=== PATIENT | female | born 1980 | race Caucasian/White ===

== ENCOUNTER 2019-11-30 15:39 | Emergency (ER) | payer OTHER ==
[2019-11-30 15:43] VITALS: TEMP 98.4; BMI 26.9
[2019-11-30] MEDS ORDERED: FAMOTIDINE 20 MG/50 ML IVPB 20 MG/50 ML MG IVPB ONE ×2 (15:56→16:01)
[2019-11-30] MEDS ORDERED: SODIUM CHLORIDE 0.9% 1000 ML INFUS.BAG IV ONE (15:56)
[2019-11-30] MEDS ORDERED: methylPREDNISolone NA SUCC 125 MG/2 ML VIAL IVPB ONE (15:56)
[2019-11-30] MEDS ORDERED: methylPREDNISolone NA SUCC 125 MG/2 ML VIAL ONE ×2 (15:57→15:59)
[2019-11-30 17:21] VITALS: BP 126/77; PULSE 70
--- NOTE | 2019-11-30 17:24 | PDOC ---
History of Present Illness - General Chief Complaint: Allergic Reaction Stated Complaint: ALLERGIC REACTION Time Seen by Provider: 11/30/19 15:59 - History of Present Illness Initial Comments: Pt is a 39yo Slovenian speaking F with no significant PMH who presents with facial swelling. Pt states that swelling began around 3:30pm today. Associated with itchiness of her head, abdominal pain, nausea, and slight vomiting. Pt also rep orts that her voice sounds hoarse and feels SOB. Pt only reports hx of allergy to pollen. States that she ate pork and adobo at 3pm, Flanax @ 1pm, shrimp @ 12pm. States that she has taken these items in the past without issue. PCP: denies PMH: none PSH: C section Meds: denies Allergies: NKDA Social: social ETOH, denies tobacco, etoh use General Farmer [id number] Review of Systems CONSTITUTIONAL:denies fever, chills, diaphoresis, malaise, loss of appetite HEENT:reports hoarse voice, reports facial swelling; denies rhinorrhea, nasal congestion, sore throat, throat swelling, difficulty swallowing CARDIOVASCULAR:denies chest pain, syncope, palpitations, irregular heart rate, lightheadedness, peripheral edema RESPIRATORY:reports SOB; denies cough, wheezing, hemoptysis GASTROINTESTINAL: denies abdominal pain, abdominal distension, nausea, vomiting, diarrhea, constipation, melena, hematochezia GENITOURINARY:denies dysuria, frequency, urgency, hesitancy, hematuria, flank pain, genital pain MUSCULOSKELETAL:denies myalgia, arthralgia HEMATOLOGIC/IMMUNOLOGIC:denies easy bleeding, easy bruising ENDOCRINE: denies unexplained weight gain, unexplained weight loss NEUROLOGIC:reports dizziness, denies headache, loss of consciousness, focal weakness or paresthesias, seizure, mental status changes, bladder or bowel incontinence SKIN:reports itching @ head Physical Exam General: awake, alert, fully oriented, in no acute distress, well developed, well nourished Head: normocephalic, atraumatic Eyes: PERRL, EOMI, anicteric sclera, conjunctiva clear ENT: Auricles normal inspection, hearing grossly normal, TMs clear bilaterally, nares patent, oropharynx clear without exudates, no nasal congestion, moist mucous membranes; no uvular edema, no tongue swelling Neck: supple, normal ROM, no stridor Lung: equal breath sounds b/l, CTA b/l, no crackles, wheezes; no distress, speaks full sentences Heart: RRR, normal S1, S2, no murmurs appreciated Abdomen: soft, non tender, normoactive bowel sounds, no guarding, rebound, masses Extremities: no edema, no erythema or tenderness, DP/PT pulses 2+ and symmetric Neuro: CN2-12 grossly intact, moves all extremities, normal speech, normal gait, sensation intact Skin: warm, dry, no rashes or lesions noted MDM Pt is a 39yo F with no significant PMH who presents with facial swelling. Vitals: normotensive, saturating well on room air. DDx including but not limited to: allergic reaction, angioedema [place]: benadryl, pepcid, solumedrol Improved with breathing and swelling with medications Re-assessment: Patient stable for discharge. Given follow up instructions and strict return precautions. Patient expressed understanding and agreed to plan Disposition: Discharge 12/01/19 01:59 Past History - Medical History Allergies/Adverse Reactions: Allergies Allergy/AdvReac Type Severity Reaction Status Date / Time No Known Allergies Allergy Verified 11/30/19 15:40 Home Medications: Ambulatory Orders Epinephrine [Epipen] 0.3 mg IJ PRN #1 auto.injct 11/30/19 Epinephrine [Epipen] 0.3 mg IJ PRN #1 auto.injct 11/30/19 Prednisone [Prednisone 50 MG TABLETS] 50 mg PO DAILY #3 tablet 11/30/19 Asthma: Yes (NO RECENT ATTACKS) Cancer: No Cardiac Disorders: No COPD: No Diabetes: No HTN: No Seizures: No Thyroid Disease: No - Reproductive History Is Patient Now?: No - Psycho-Social/Smoking History Smoking History: Never smoked Have you smoked in the past 12 months: No - Substance Abuse Hx (Audit-C & DAST Scrn) How often the patient has a drink containing alcohol: Never Score: In Men: 4 or > Positive; In Women: 3 or > Positive: 0 Screen Result (Pos requires Nsg. Audit-10AR): Negative *Physical Exam - Vital Signs Last Vital Signs Temp Pulse Resp BP Pulse Ox 98.4 F 77 18 165/87 100 11/30/19 15:41 11/30/19 15:41 11/30/19 15:41 11/30/19 15:41 11/30/19 15:41 ED Treatment Course - Medications Given in the ED: ED Medications Discontinued Medications Generic Name Dose Route Start Last Admin Trade Name Ayanna PRN Reason Stop Dose Admin Diphenhydramine HCl 50 mg 11/30/19 15:56 11/30/19 16:09 Benadryl Injection - IVPB 11/30/19 15:57 50 mg ONCE ONE Administration Famotidine/Sodium Chloride 20 mg in 50 mls @ 100 mls/hr 11/30/19 15:56 11/30/19 16:09 Pepcid 20 Mg Premixed Ivpb - IVPB 11/30/19 16:25 100 mls/hr ONCE ONE Administration Methylprednisolone Sodium Succinate 125 mg 11/30/19 15:56 11/30/19 16:09 Solu-Medrol - IVPB 11/30/19 15:57 125 mg ONCE ONE Administration Sodium Chloride 500 ml 11/30/19 15:56 11/30/19 16:19 Normal Saline - IV 11/30/19 15:57 500 ml ONCE ONE Administration Discharge - Discharge Information Problems reviewed: Yes Clinical Impression/Diagnosis: Allergic reaction Qualifiers: Encounter type: initial encounter Qualified Code(s): T78.40XA - Allergy, unspecified, initial encounter Condition: Stable Disposition: HOME - Additional Discharge Information Prescriptions: Epinephrine [Epipen] 0.3 mg IJ PRN #1 auto.injct Epinephrine [Epipen] 0.3 mg IJ PRN #1 auto.injct Prednisone [Prednisone 50 MG TABLETS] 50 mg PO DAILY #3 tablet - Follow up/Referral Referrals: Lauri Arcos MD [Primary Care Provider] - [facility] [place] [facility] [place] [Provider Group] Zander Trujillo [Staff Physician] - - Patient Discharge Instructions Patient Printed Discharge Instructions: DI for General Allergic Reactions, DI for Adverse Drug Reaction -- Allergic Additional Instructions: You came into the ER allergic reaction. In the ED, you were evaluated with physical exam. You do not appear to be an acute need for immediate hospitalization. You should avoid taking Flanax or any other medication that contains naproxen or NSAIDs (ibuprofen, motrin, aleve, flanax, etc.). You should avoid eating pork or shrimp. You were advised to follow up with your primary care doctor within 1 week. You were advised to follow up with an range conservationist, Dr. Trujillo. Call TOMORROW to schedule an appointment. You were given a prescription for an Epi-Pen you should ONLY use this medication when you feel your throat or tongue is swelling or if you have difficulty breathing. You were given a prescription for prednisone. Take this once a day for 3 days. You may take over the counter benadryl every 4 to 6 hours as needed. Come back to the ER immediately with any new or worsening concerns, such as shortness of breath, throat tightening, lightheadedness, chest pain, or if you need to use the Epi-Pen Thank you for coming to the [facility] ER. We hope you feel better soon! Lleg a la samreen de emergencias con marsha reaccin alrgica. En el servicio de urgencias, lo evaluaron con un examen fsico. No parece tener marsha necesidad aguda de hospitalizacin inmediata. Debe evitar marcia Flanax o cualquier otro medicamento que contenga naproxeno o KRUPA (ibuprofeno, motrin, aleve, flanax, etc.). Debe evitar comer carne de cerdo o camarones. Se le recomend hacer un seguimiento con grier mdico de atencin primaria en el plazo de 1 semana. Se le recomend hacer un seguimiento con un alerglogo, el Dr. Trujillo. Llame MAANA para programar amrsha gaby. Se le recet un Epi-Pen; debe usar renetta medicamento NICAMENTE cuando sienta que la garganta o la lengua se hinchan o si tiene dificultad para respirar. Le recetaron prednisona. [facility] esto marsha vez al da harry 3 mireles. Puede marcia benadryl de venta aquilino cada 4 a 6 horas, segn sea necesario. Regrese a la samreen de emergencias de inmediato con cualquier inquietud nueva o que empeore, jacqui dificultad para respirar, opresin de garganta, aturdimiento, dolor en el pecho o si necesita usar el Epi-Pen Chichi por venir a la samreen de emergencias de [place]. Esperamos que se sienta mejor pronto! Print Language: BULGARIAN - Post Discharge Activity
--- NOTE | 2019-11-30 17:26 | PDOC ---
Documentation entered by Valentin Bloom SCRIBE, acting as scribe for Junito Cazares MD. Junito Cazares MD: This documentation has been prepared by the nachoibeWolf Alexis, SCRIBE, under my direction and personally reviewed by me in its entirety. I confirm that the documentation accurately reflects all work, treatment, procedures, and medical decision making performed by me. Attending Attestation - Resident Resident Name: CaesarJudith - ED Attending Attestation I have performed the following: I have examined & evaluated the patient, The case was reviewed & discussed with the resident, I agree w/resident's findings & plan, Exceptions are as noted - HPI HPI: 11/30/19 16:38 The patient is a 39 year old female with no significant past medical history or allergic reaction history who presents to the emergency department for evaluation of sensation of throat closing and rash to chest and back that began after eating shrimp 2.5 hours ago and naproxen one hour ago. Symptoms are mild to moderate, persistent and constant. No exacerbating or alleviating factors. The patient denies chest/abdominal/back pain, cough, and shortness of breath. Denies fever, chills, nausea, vomiting, and/or any GI symptoms. Denies any symptoms. Denies any other symptoms. Allergies: NKA PCP: Dr. Arcos - Physicial Exam PE: 11/30/19 16:38 Vitals: Triage Vital signs reviewed General Appearance: no acute distress, well nourished well developed, Head: Atraumatic, normocephalic; Nose: Nares patent bilaterally;no nasal congestion Throat: Posterior oropharynx without erythema, mucous membranes moist, no stridor Neck: Supple;No Nuchal rigidity Chest Wall: Nontender Cardiac: Regular rate and rhythm, no murmurs, no rubs, no gallops, Lungs: Clear to auscultation bilateral, good air movement bilaterally, Abdomen: Soft, nondistended, normal bowel sounds, nontender to palpation Rectal: Exam deferred Extremities: Full range of motion to all extremities, no cyanosis, clubbing, or edema Skin: +rash to skin and chest Warm and dry, no lesions, no petechiae Psych: normal mood, normal affect - Medical Decision Making 11/30/19 17:27 39 y/o mild allergic reaction, no history of similar, Inciting exposure was either shrimp pork or nsaids. Received Solumedrol benadryl and pepcid in the ED. Looks much better rash improving 12/09/19 13:28 Reevaluation patient observed for 3 hours. Symptoms completely resolved will discharge home with EpiPen Patient provided with allergy follow-up Findings, need for follow-up and strict return instructions discussed with patient. Discharge - Discharge Information Problems reviewed: Yes Clinical Impression/Diagnosis: Allergic reaction Qualifiers: Encounter type: initial encounter Qualified Code(s): T78.40XA - Allergy, unspecified, initial encounter Condition: Stable Disposition: HOME - Additional Discharge Information Prescriptions: Epinephrine [Epipen] 0.3 mg IJ PRN #1 auto.injct Epinephrine [Epipen] 0.3 mg IJ PRN #1 auto.injct Prednisone [Prednisone 50 MG TABLETS] 50 mg PO DAILY #3 tablet - Follow up/Referral Referrals: [facility] [place] [facility] at [place] [Provider Group] Lauri Arcos MD [Primary Care Provider] - Zander Trujillo [Staff Physician] - - Patient Discharge Instructions Patient Printed Discharge Instructions: DI for General Allergic Reactions, DI for Adverse Drug Reaction -- Allergic Additional Instructions: You came into the ER allergic reaction. In the ED, you were evaluated with physical exam. You do not appear to be an acute need for immediate hospitalization. You should avoid taking Flanax or any other medication that contains naproxen or NSAIDs (ibuprofen, motrin, aleve, flanax, etc.). You should avoid eating pork or shrimp. You were advised to follow up with your primary care doctor within 1 week. You were advised to follow up with an asset specialist, Dr. Trujillo. Call TOMORROW to schedule an appointment. You were given a prescription for an Epi-Pen you should ONLY use this medication when you feel your throat or tongue is swelling or if you have difficulty breathing. You were given a prescription for prednisone. Take this once a day for 3 days. You may take over the counter benadryl every 4 to 6 hours as needed. Come back to the ER immediately with any new or worsening concerns, such as shortness of breath, throat tightening, lightheadedness, chest pain, or if you need to use the Epi-Pen Thank you for coming to the [facility] ER. We hope you feel better soon! Lleg a la samreen de emergencias con marsha reaccin alrgica. En el servicio de urgencias, lo evaluaron con un examen fsico. No parece tener marsha necesidad aguda de hospitalizacin inmediata. Debe evitar marcia Flanax o cualquier otro medicamento que contenga naproxeno o KRUPA (ibuprofeno, motrin, aleve, flanax, etc.). Debe evitar comer carne de cerdo o camarones. Se le recomend hacer un seguimiento con grier mdico de atencin primaria en el plazo de 1 semana. Se le recomend hacer un seguimiento con un alerglogo, el Dr. Trujillo. Llame MAANA para programar marsha gaby. Se le recet un Epi-Pen; debe usar renetta medicamento NICAMENTE cuando sienta que la garganta o la lengua se hinchan o si tiene dificultad para respirar. Le recetaron prednisona. [place] esto marsha vez al da harry 3 mireles. Puede marcia benadryl de venta aquilino cada 4 a 6 horas, segn sea necesario. Regrese a la samreen de emergencias de inmediato con cualquier inquietud nueva o que empeore, jacqui dificultad para respirar, opresin de garganta, aturdimiento, dolor en el pecho o si necesita usar el Epi-Pen Chichi por venir a la samreen de emergencias de [place]. Esperamos que se sienta mejor pronto! Print Language: TURKISH - Post Discharge Activity
== END 2019-11-30 18:37 | disposition home or self-care (01) ==
LOC: JER 15:39
PROC: 3E033GC Introduction of Other Therapeutic Substance into Peripheral Vein, Percutaneous Approach (ICD-10-PCS; principal; 2019-11-30)
DX: T78.40XA Allergy, unspecified, initial encounter (principal)
CPT/HCPCS: 99284-25

== ENCOUNTER 2020-09-05 22:19 | Emergency (ER) | payer OTHER ==
[2020-09-05 22:24] VITALS: BP 126/54; PULSE 62; TEMP 98.6; BMI 26.6
[2020-09-05 23:34] LABS: HCG,QUALITATIVE URINE Positive
[2020-09-05 23:36] LABS: EPI CELLS >36 /uL (0-25.1); HYALINE CASTS 3 /uL (0-3.1); PH,URINE 5.5 (5.0-8.0); URINE APPEARANCE CLOUDY; URINE BACTERIA 337 /uL (0-1359); URINE BILIRUBIN NEGATIVE (NEGATIVE); URINE COLOR YELLOW; URINE GLUCOSE (UA) NEGATIVE (NEGATIVE); URINE KETONE NEGATIVE (NEGATIVE); URINE LEUK ESTERASE TRACE (NEGATIVE); URINE NITRITE NEGATIVE (NEGATIVE); URINE PROTEIN NEGATIVE (NEGATIVE); URINE RBC 420 /uL (0-23.9); URINE UROBILINOGEN 0.2 mg/dL (0.2-1.0); URINE WBC 8 /uL (0-25.8)
== END 2020-09-06 02:56 | disposition home or self-care (01) ==
LOC: JER 22:19
DX: O26.851 Spotting complicating pregnancy, first trimester (principal); Z3A.01 Less than 8 weeks gestation of pregnancy
CPT/HCPCS: 36415; 76817-TC; 81003; 84702; 84703; 86850; 86900; 86901; 99284-25

== ENCOUNTER 2021-09-01 21:56 | Emergency (ER) | payer OTHER ==
[2021-09-01 22:15] VITALS: BP 165/90; PULSE 68; TEMP 98.4; BMI 26.6
[2021-09-02] MEDS ORDERED: KETOROLAC TROMETHAMINE 15 MG/ML VIAL IVPUSH ONE ×2 (01:09→04:02)
[2021-09-02] MEDS ORDERED: ACETAMINOPHEN 500 MG TABLET (FP) PO ONE (01:10)
[2021-09-02] MEDS ORDERED: ACETAMINOPHEN 500 MG TABLET (FP) ONE (02:28)
[2021-09-02 03:35] LABS: BASO % 0.2 % (0-2.0); EOS % 2.7 % (0-4.5); HEMATOCRIT 37.5 % (32.4-45.2); HEMOGLOBIN 12.6 GM/dL (10.7-15.3); LYMPH % 18.4 % (8-40); MCH 29.2 pg (25.7-33.7); MCHC 33.7 g/dl (32.0-36.0); MEAN CELL VOLUME 86.9 fl (80-96); MEAN PLT VOLUME 8.7 fl (7.5-11.1); MONO % 8.5 % (3.8-10.2); NEUT % 70.2 % (42.8-82.8); PLATELET COUNT 204 10^3/uL (134-434); RBC 4.32 M/mm3 (3.60-5.2); RDW 13.7 % (11.6-15.6); WHITE BLOOD COUNT 9.4 K/mm3 (4.0-10.0)
[2021-09-02 03:44] LABS: PH,URINE 5.5 (5.0-8.0); URINE APPEARANCE CLEAR; URINE BILIRUBIN NEGATIVE (NEGATIVE); URINE COLOR YELLOW; URINE GLUCOSE (UA) NEGATIVE (NEGATIVE); URINE KETONE NEGATIVE (NEGATIVE); URINE LEUK ESTERASE NEGATIVE (NEGATIVE); URINE NITRITE NEGATIVE (NEGATIVE); URINE PROTEIN NEGATIVE (NEGATIVE); URINE UROBILINOGEN 0.2 mg/dL (0.2-1.0)
[2021-09-02 03:55] LABS: CALCIUM 8.8 mg/dL (8.5-10.1)
[2021-09-02 03:56] LABS: ALBUMIN 3.8 g/dl (3.4-5.0); BLOOD UREA NITROGEN 12.5 mg/dL (7-18)
[2021-09-02 03:59] LABS: CREATININE 0.6 mg/dL (0.55-1.3)
[2021-09-02 04:01] LABS: BILIRUBIN,TOTAL 0.6 mg/dL (0.2-1); TOT PROT 7.5 g/dl (6.4-8.2)
[2021-09-02 04:09] LABS: ERYTHROCYTE SEDIMENTATION RATE 3 mm/hr (0-20)
[2021-09-02] MEDS ORDERED: KETOROLAC TROMETHAMINE 15 MG/ML VIAL ONE (05:07)
== END 2021-09-02 05:44 | disposition home or self-care (01) ==
LOC: JER 21:56
PROC: 3E0233Z Introduction of Anti-inflammatory into Muscle, Percutaneous Approach (ICD-10-PCS; principal; 2021-09-01)
DX: M25.531 Pain in right wrist (principal)
CPT/HCPCS: 36415; 73030-TC-RT-FY; 73110-TC-RT-FY; 73130-TC-RT-FY; 80053; 81003; 84703; 85025; 85651; 86140; 86618; 87491; 87591; 99284-25

== ENCOUNTER 2022-07-10 13:50 | Inpatient (IN) | payer OTHER ==
[2022-07-10] MEDS ORDERED: ACETAMINOPHEN 325 MG TABLET (FP) PO PRN (14:55)
[2022-07-10] MEDS ORDERED: BENZOCAINE 28 GM HEMORRHOIDAL OINTMENT TP PRN (14:55)
[2022-07-10] MEDS ORDERED: oxyCODONE HCL 5 MG TABLET PO PRN (14:55)
[2022-07-10] MEDS ORDERED: WITCH HAZEL 50% (TUCKS) 40 PAD/JAR PAD TP PRN (14:55)
[2022-07-10] MEDS ORDERED: METHYLERGONOVINE MALEATE 0.2 MG/1 ML AMP IM ONE (14:55)
[2022-07-10] MEDS ORDERED: BENZOCAINE 20% 57 GM BOTTLE TP PRN (14:55)
[2022-07-10] MEDS ORDERED: BISACODYL 10 MG SUPP.RECT RC PRN (14:55)
[2022-07-10] MEDS ORDERED: METHYLERGONOVINE MALEATE 0.2 MG/1 ML AMP IM PRN (14:55)
[2022-07-10] MEDS ORDERED: OXYTOCIN 20 UNITS in 0.9% NS 20 UNIT/1,000 ML INFUS.BAG IV SCH (15:00)
[2022-07-10 15:33] VITALS: BMI 29.2
[2022-07-10] MEDS: IBUPROFEN 600 MG TABLET (FP) PO PRN ×2 (16:00→21:25)
[2022-07-10 16:03] LABS: BASO % 0.2 % (0-2.0); EOS % 0.2 % (0-4.5); HEMATOCRIT 38.4 % (32.4-45.2); HEMOGLOBIN 13.4 GM/dL (10.7-15.3); LYMPH % 9.1 % (8-40); MCH 32.4 pg (25.7-33.7); MCHC 34.8 g/dl (32.0-36.0); MEAN CELL VOLUME 93.2 fl (80-96); MEAN PLT VOLUME 10.5 fl (7.5-11.1); MONO % 4.3 % (3.8-10.2); NEUT % 86.2 % (42.8-82.8); PLATELET COUNT 156 10^3/uL (134-434); RBC 4.13 M/mm3 (3.60-5.2); RDW 13.2 % (11.6-15.6); WHITE BLOOD COUNT 12.4 K/mm3 (4.0-10.0)
[2022-07-10] MEDS ORDERED: IBUPROFEN 600 MG TABLET (FP) PO ONE (16:04)
[2022-07-10 16:18] LABS: INR 0.96 (0.83-1.09); PROTHROMBIN TIME (PATIENT) 11.1 SEC (9.7-13.0)
[2022-07-10 16:21] LABS: ACTIVATED PTT 28.3 SECONDS (25.2-36.5)
[2022-07-10 16:22] LABS: CALCIUM 8.5 mg/dL (8.5-10.1)
[2022-07-10] MEDS ORDERED: OXYTOCIN 20 UNITS in 0.9% NS 20 UNIT/1,000 ML INFUS.BAG IV ONE (16:25)
[2022-07-10 16:26] LABS: CREATININE 0.7 mg/dL (0.55-1.3)
[2022-07-10 16:54] LABS: SYPHILIS W/ RPR CONF NON-REACTIVE (NONREACTIVE)
[2022-07-10 19:19] LABS: HIV INTERPRETATION NEGATIVE (NEGATIVE)
[2022-07-10 20:07] LABS: HEPATITIS B SURFACE AG MATERN NON-REACTIVE (NONREACTIVE)
[2022-07-11] MEDS: IBUPROFEN 600 MG TABLET (FP) PO PRN ×3 (05:56→17:57)
[2022-07-11 08:25] LABS: BASO % 0.6 % (0-2.0); HEMOGLOBIN 11.4 GM/dL (10.7-15.3); LYMPH % 27.5 % (8-40); MCHC 35.5 g/dl (32.0-36.0); MEAN PLT VOLUME 9.9 fl (7.5-11.1); MONO % 6.2 % (3.8-10.2); NEUT % 64.7 % (42.8-82.8); PLATELET COUNT 150 10^3/uL (134-434); RBC 3.44 M/mm3 (3.60-5.2); RDW 13.4 % (11.6-15.6); WHITE BLOOD COUNT 11.9 K/mm3 (4.0-10.0)
[2022-07-11] MEDS: SENNOSIDES/DOCUSATE COMBO (SENNA PLUS) TABLET (UD) PO PRN (20:57)
[2022-07-12] MEDS: IBUPROFEN 600 MG TABLET (FP) PO PRN ×3 (01:44→16:51)
[2022-07-12 10:02] VITALS: BP 122/70; PULSE 83; RESP 18; TEMP 98
[2022-07-12] MEDS: SENNOSIDES/DOCUSATE COMBO (SENNA PLUS) TABLET (UD) PO PRN (16:51)
== END 2022-07-12 17:20 | disposition home or self-care (01) | DRG 560 ==
LOC: JLDR 13:50 → J3W 16:50
PROVIDERS: ADMIT Obstetrics & Gynecology; ATTEND Obstetrics & Gynecology
PROC: 10E0XZZ Delivery of Products of Conception, External Approach (ICD-10-PCS; principal; 2022-07-10)
PROC: 0KQM0ZZ Repair Perineum Muscle, Open Approach (ICD-10-PCS; 2022-07-10)
DX: O70.1 Second degree perineal laceration during delivery (principal); Z3A.39 39 weeks gestation of pregnancy; Z37.0 Single live birth
CPT/HCPCS: 36415; 80048; 85025; 85610; 85730; 86780; 86850; 86900; 86901; 87340; 87389; C9803-CS; U0003; U0005